=== PATIENT | male | born 1925 | race Caucasian/White ===

== ENCOUNTER 2016-11-17 10:00 | Outpatient (RCR) | payer OTHER ==
[~2016-11-17 10:00] MED LIST: ARICEPT5 MG ORAL; ASPIR 8181 MG ORAL; CIPROFLOXACIN500 M2 ORAL; FLOMAX0.4 MG ORAL; IBUPROFEN600 MG ORAL; NAMENDA5 MG ORAL; NORCO 5-325 TA1 EACH ORAL; SULFAMETHOXAZO480 ML ORAL
== END 2016-12-14 | disposition home or self-care (01) ==
LOC: PTY 10:00
DX: M25.561 Pain in right knee (principal); M79.605 Pain in left leg; M54.5 Low back pain; M25.552 Pain in left hip; M25.551 Pain in right hip; Z79.82 Long term (current) use of aspirin; G30.9 Alzheimer's disease, unspecified; M17.9 Osteoarthritis of knee, unspecified; D51.9 Vitamin B12 deficiency anemia, unspecified; N40.0 Benign prostatic hyperplasia without lower urinary tract symptoms; F03.90 Unspecified dementia, unspecified severity, without behavioral disturbance, psychotic disturbance, mood disturbance, and anxiety; R13.10 Dysphagia, unspecified; R06.00 Dyspnea, unspecified; R53.83 Other fatigue; K21.9 Gastro-esophageal reflux disease without esophagitis; K29.70 Gastritis, unspecified, without bleeding; M00.9 Pyogenic arthritis, unspecified; M51.27 Other intervertebral disc displacement, lumbosacral region; Z96.652 Presence of left artificial knee joint; N18.3 Chronic kidney disease, stage 3 (moderate); A49.02 Methicillin resistant Staphylococcus aureus infection, unspecified site; Z86.010 Personal history of colon polyps; R53.1 Weakness; D69.2 Other nonthrombocytopenic purpura
CPT/HCPCS: 97110; 97140; 97162; G0283

== ENCOUNTER 2016-12-19 13:15 | Outpatient (RCR) | payer OTHER | END 2017-01-13 | disposition home or self-care (01) | LOC: PTY 13:15 | DX: M79.604 Pain in right leg (principal); M25.561 Pain in right knee | CPT/HCPCS: 97110; G0283 ==